=== PATIENT | female | born 1995 | race Caucasian/White ===

== ENCOUNTER 2023-03-14 10:57 | Emergency (ER) | payer MEDICAID, OTHER ==
[~2023-03-14] VITALS: Ht 157.5 cm; Wt 50.0 kg
[2023-03-14 11:00] VITALS: TEMP 98.7; O2SAT 100
[2023-03-14 14:15] VITALS: BP 97/45; PULSE 87; RESP 14
[2023-03-14] MEDS ORDERED: IBUPROFEN 600MG TABLET PO ONE (14:15)
[2023-03-14] MEDS ORDERED: IBUP-2029 MT (15:00)
== END 2023-03-14 16:01 | disposition home or self-care (01) ==
LOC: ER 11:03
DX: S60.221A Contusion of right hand, initial encounter (principal); Y04.0XXA Assault by unarmed brawl or fight, initial encounter; Y93.89 Activity, other specified; Y92.89 Other specified places as the place of occurrence of the external cause; Y99.8 Other external cause status
CPT/HCPCS: 29125; 73110; 73130; 99284